=== PATIENT | male | born 1960 | race Asian ===

== ENCOUNTER 2021-10-03 11:21 | Emergency (ER) | payer OTHER ==
[~2021-10-03] VITALS: Ht 170.2 cm; Wt 66.7 kg
[2021-10-03 12:09] LABS: PLATELET COUNT 288 K/uL (142-355)
[2021-10-03 12:28] LABS: POTASSIUM 3.7 mmol/L (3.6-5.2)
[2021-10-03 19:30] VITALS: BP 127/82; TEMP 98.2
== END 2021-10-03 21:26 | disposition other institution (70) ==
LOC: ED 11:21
PROVIDERS: Emergency Medicine Emergency Medical Services
DX: R45.851 Suicidal ideations (principal); Z11.52 Encounter for screening for COVID-19; I10 Essential (primary) hypertension; F17.210 Nicotine dependence, cigarettes, uncomplicated
CPT/HCPCS: 80053; 80143; 80179; 80307; 80320; 85027; 87635; 93005; 99285; U0003